=== PATIENT | male | born 1980 | race Caucasian/White ===

== ENCOUNTER 2019-03-16 12:08 | Emergency (ER) | payer OTHER, SELFPAY ==
--- NOTE | 2019-03-16 12:20 | DI.RAD.S_ITS ---
PROCEDURE: XR WRIST LT MIN 3V INDICATIONS: wrist injury after fall TECHNIQUE: 4 views of the wrist were acquired. COMPARISON: None. FINDINGS: Bones: No fractures or dislocations. No suspicious bony lesions. Scaphoid view: No navicular fractures are seen. Soft tissues: No suspicious soft tissue calcifications. IMPRESSION: No displaced fractures are seen. If there is snuffbox tenderness (or other clinical suspicion for a fracture not seen on these images) then a repeat examination would be recommended in 10 to 14 days, following splinting. Dictated by: Juan Garzon M.D. on 03/16/2019 at 11:40 Approved by: Juan Garzon M.D. on 03/16/2019 at 11:40
[2019-03-16 12:24] VITALS: BP 143/81; PULSE 68; RESP 18; TEMP 36.4; O2SAT 98; BMI 28.2
[2019-03-16] MEDS: TET,DIPH,PERTUSS(ACELL),VAC/PF 0.5 ML SYRINGE IM (12:37)
[2019-03-16 13:23] VITALS: BP 132/70; PULSE 72; O2SAT 98
--- NOTE | 2019-03-16 13:50 | ED_ITS ---
HPI - Extremity Injury (Upper) <CARI Tyler - Last Filed: 03/16/19 13:55> General Chief Complaint: Extremity Injury, Upper Stated Complaint: left hand possible break in the wrist Time Seen by Provider: 03/16/19 12:24 Source: patient Mode of arrival: Ambulatory Limitations: no limitations History of Present Illness HPI narrative: The patient is a 38-year-old male who denies pertinent medical history is a nonsmoker presents with a chief complaint of left wrist injury. While running he slipped and had a FOOSH injury to his left wrist yesterday. He has multiple abrasions on his left hand. He is not was last tetanus was. He denies any neck or back pain. Denies any other injuries. Review of Systems <CARI Tyler - Last Filed: 03/16/19 13:55> Review of Systems Narrative: GENERAL: Denies chills, fatigue, malaise, fever, sweats. HEENT: Denies sinus pain, ear pain, sore throat, difficulty swallowing, dizziness. RESPIRATORY: Denies dyspnea, cough, wheezing, hemoptysis, sputum. CARDIOVASCULAR: Denies chest pain, palpitations, orthopnea, edema, GASTROINTESTINAL: Denies nausea, vomiting, abdominal pain, diarrhea, constipation, melena. : Denies dysuria, frequency, incontinence, hematuria, urinary retention. MUSCULOSKELETAL: See HPI SKIN: see HPI NEUROLOGIC: Denies weakness, headache, numbness, change in speech, confusion, seizures, incoordination. PSYCHIATRIC: No concerning psychosocial issues. 12 point review of systems is negative except for those stated above Patient History <CARI Tyler - Last Filed: 03/16/19 13:55> Social History Smoking Status: Never smoker Smoking Status: Never smoker alcohol intake frequency: a few times a month Substance Use Type: does not use Exam <CARI Tyler - Last Filed: 03/16/19 13:55> Narrative Exam Narrative: GENERAL: This is a well-nourished, well-developed patient, in no acute distress HEAD: Atraumatic. Normocephalic. No temporal or scalp tenderness. EYES: Pupils equal round and reactive. Extraocular motions intact. No scleral icterus. No injection or drainage. ENT: Nose without bleeding, purulent drainage or septal hematoma. Throat without erythema, tonsillar hypertrophy or exudate. Uvula midline. Airway patent. NECK: Trachea midline. No JVD or lymphadenopathy. Supple, nontender, no meningeal signs. CARDIOVASCULAR: Regular rate and rhythm RESPIRATORY: No cough. No increased respiratory effort. No accessory muscle use. EXTREMITIES: General pain to palpation left wrist. No snuffbox pain to palpation. Able to flex and extend rotate left wrist, though decreased range of motion all flores. Positive radial pulse left hand. Capillary refill less than 2 seconds. BACK: Nontender without deformity or crepitance. No flank tenderness. NEURO: AOx3. SKIN: Multiple small abrasions on home of left hand not full thickness, no spreading erythema Initial Vital Signs Initial Vital Signs: Vital Signs Temperature 97.6 F 03/16/19 12:24 Pulse Rate 68 03/16/19 12:24 Respiratory Rate 18 03/16/19 12:24 Blood Pressure 143/81 H 03/16/19 12:24 Pulse Oximetry 98 03/16/19 12:24 <Talha Adame DO - Last Filed: 03/16/19 14:12> Initial Vital Signs Initial Vital Signs: Vital Signs Temperature 97.6 F 03/16/19 12:24 Pulse Rate 68 03/16/19 12:24 Respiratory Rate 18 03/16/19 12:24 Blood Pressure 143/81 H 03/16/19 12:24 Pulse Oximetry 98 03/16/19 12:24 Procedures <CARI Tyler - Last Filed: 03/16/19 13:55> Orthopedic Splinting/Casting Injury #1: Side: left Upper Extremity Injury Location: wrist Upper Extremity Immobilizer: wrist splint (Black wrist brace) Post splinting neuro exam: intact Post splinting vascular exam: intact Placed by: Nursing Course <CARI Tyler - Last Filed: 03/16/19 13:55> Orders Ordered: ED Orders 03/16/19 12:20 XR wrist LT min 3V Stat Discontinued Medications Diphtheria/Tetanus/Acell Pertussis (Adacel) 0.5 ml IM .ONCE ONE Stop: 03/16/19 12:32 Last Admin: 03/16/19 12:37 Dose: 0.5 ml Documented by: LUANA Vital Signs Vital signs: Vital Signs - 8 hr 03/16/19 12:24 03/16/19 13:23 Temperature 97.6 F Pulse Rate 68 72 Respiratory Rate 18 Blood Pressure 143/81 H 132/70 Pulse Oximetry 98 98 <Talha Adame DO - Last Filed: 03/16/19 14:12> Orders Ordered: ED Orders 03/16/19 12:20 XR wrist LT min 3V Stat Discontinued Medications Diphtheria/Tetanus/Acell Pertussis (Adacel) 0.5 ml IM .ONCE ONE Stop: 03/16/19 12:32 Last Admin: 03/16/19 12:37 Dose: 0.5 ml Documented by: LUANA Vital Signs Vital signs: Vital Signs - 8 hr 03/16/19 12:24 03/16/19 13:23 Temperature 97.6 F Pulse Rate 68 72 Respiratory Rate 18 Blood Pressure 143/81 H 132/70 Pulse Oximetry 98 98 MDM - Extremity Injury (Upper) <JOSE Tyler - Last Filed: 03/16/19 13:55> Imaging Data Extremity x-ray #1: Radiologist's Impression: XRay Report Signed Patient: Abraham Abdi#: [id number] : 1980Acct:[id number] Age/Sex: 38 / MDate of Service: 03/16/19 Loc: ED Accession Number: [id number] Procedure: XR wrist LT min 3V Ordering Provider: Talha Adame D.O. PROCEDURE: XR WRIST LT MIN 3V INDICATIONS: wrist injury after fall TECHNIQUE: 4 views of the wrist were acquired. COMPARISON: None. FINDINGS: Bones: No fractures or dislocations. No suspicious bony lesions. Scaphoid view: No navicular fractures are seen. Soft tissues: No suspicious soft tissue calcifications. IMPRESSION: No displaced fractures are seen. If there is snuffbox tenderness (or other clinical suspicion for a fracture not seen on these images) then a repeat examination would be recommended in 10 to 14 days, following splinting. Dictated by: Juan Garzon M.D. on 03/16/2019 at 11:40 Approved by: Juan Garzon M.D. on 03/16/2019 at 11:40 MDM Narrative Medical decision making narrative: The patient is a 38-year-old male who presents with a chief complaint of left wrist pain. He is neurovascularly intact. He has multiple abrasions, tetanus is updated. X-ray shows no acute fracture. Discussed possibility of occult fractures, though it is reassuring that he has no snuffbox tenderness. He was placed in a black brace for comfort discussed at length rest ice compression elevation as well as [id number] pain medications as needed and able. Encourage PCP follow-up. Discussed coming back to ER for acute concerns. Patient has no questions or concerns upon discharge and states understanding of return precautions as well as follow-up care. Discharge Plan Departure Patient Disposition: Home Clinical Impression: Sprain and strain of wrist, Abrasion Discharge Date/Time: 03/16/19 13:23 Instructions: DI for Wrist Sprain, How To Perform RICE (Rest, Ice, Compress, Elevate), DI for Abrasion Activity Restrictions/Additional Instructions: As I discussed, your x-ray shows no acute fracture. This does not rule out a so ft tissue injury such as a ligament or tendon injury. It is important that you follow up with primary care provider, especially if worsening or no improvement. There can be fractures that did not show up on initial x-ray. Please use rest ice compression elevation as well as [id number] pain medications as needed and able Please monitor your abrasions for signs and symptoms of infection. Please keep them clean and dry. Please follow-up with primary care provider in the next few days. Please come back to the emergency department for any acute concerns <Talha Adame, DO - Last Filed: 03/16/19 14:12> Sign Out Provider Sign Out Attestation: Dr Adame Co-Sign Statement: I was available for consultation during this patient's emergency department visit. This chart is signed by myself for administrative purposes only. I did not have direct contact with this patient during this visit. They were seen independently by the APC.
== END 2019-03-16 13:23 | disposition home or self-care (01) ==
PROVIDERS: Emergency Provider Nurse Practitioner Family
DX: S63.502A Unspecified sprain of left wrist, initial encounter (principal); W01.0XXA Fall on same level from slipping, tripping and stumbling without subsequent striking against object, initial encounter
CPT/HCPCS: 73110; 90471; 99282; 99283; 90715

== ENCOUNTER → 2020-11-17 12:53 | Outpatient (CLI) | payer OTHER, SELFPAY ==
[2020-11-17 13:52] LABS: COVID19 -Nasal RAPID Negative (Negative)
== END ==
PROVIDERS: Visit Provider Physician Assistant
DX: Z20.822 Contact with and (suspected) exposure to COVID-19 (principal); J02.9 Acute pharyngitis, unspecified
CPT/HCPCS: 87070; 87635

== ENCOUNTER → 2022-05-11 09:17 | Outpatient (CLI) | payer OTHER, SELFPAY ==
--- NOTE | 2022-05-11 | DI.MRI.S_ITS ---
PROCEDURE: MR SHOULDER RT WO CON INDICATIONS: RIGHT SHOULDER PAIN TECHNIQUE: Noncontrast oblique coronal T2 fast spin echo with fat saturation, oblique sagittal T1 spin echo and T2 fast spin echo with fat saturation, axial T1 spin echo and T2 fast spin echo with fat saturation through the shoulder. COMPARISON: None. FINDINGS: Image quality: Excellent. Rotator cuff: Low-grade articular and bursal surface partial thickness tear involving distal supraspinatus at their insertions on the humeral head is seen extending to musculotendinous junction. Distal subscapularis tendinosis and low-grade partial-thickness tear involving its superior fibers is also seen. No full-thickness rotator cuff tendon rupture.. Sagittal images demonstrate no significant rotator cuff muscle atrophy. Bones and bursae: No bone marrow contusions or fractures. Moderate acromioclavicular joint osteoarthritic changes are seen with joint space narrowing, subchondral sclerosis and downward osteophyte formation depressing the musculotendinous junction of supraspinatus. Small amount of subacromial subdeltoid bursal fluid is seen. Capsule and soft tissues: There is signal abnormality and contour irregularity involving anterior inferior labrum at 4 to 6 o'clock position suggestive of anterior-inferior labral tear. The long head of the biceps tendon is thickened. The rotator interval appears normal, without fibrosis. The coracohumeral ligament is normal in thickness. IMPRESSION: 1. Low-grade articular and bursal surface partial thickness tear involving distal supraspinatus extending to musculotendinous junction. Distal subscapularis tendinosis and low-grade partial-thickness tear involving its superior fibers. No full-thickness rotator cuff tendon rupture. No significant muscle atrophy. 2. Moderate acromioclavicular joint osteoarthritis. No fracture or dislocation. Small amount of subacromial subdeltoid bursal fluid. 3. Suggestion of anterior-inferior labral tear at 4 to 6 o'clock position. 4. Proximal intra-articular portion of long head of biceps tendinosis. Dictated by: Margarito Orr M.D. on 05/11/2022 at 10:42 Approved by: Margarito Orr M.D. on 05/11/2022 at 13:50
== END ==
PROVIDERS: Referring Provider Nurse Practitioner; Visit Provider Nurse Practitioner
DX: M75.111 Incomplete rotator cuff tear or rupture of right shoulder, not specified as traumatic (principal); M19.011 Primary osteoarthritis, right shoulder; M25.511 Pain in right shoulder
CPT/HCPCS: 73221